=== PATIENT | male | born 1965 | race Caucasian/White ===

== ENCOUNTER 2019-10-26 07:06 | Emergency (ER) | payer MEDICAID, OTHER ==
[~2019-10-26] VITALS: Ht 188 cm; Wt 81.6 kg
--- NOTE | 2019-10-26 07:21 | NUR ---
PT BIB SELF C/O L PINKY FINGER SWELLING AND PAIN, PT IS AAOX4, NOT IN RESPIRATORY DISTRESS, HOOKED TO MONITOR, KEPT RESTED AND COMFORTABLE, WILL CONTINUE TO MONITOR.
--- NOTE | 2019-10-26 07:33 | NUR ---
SEEN AND EXAMINED BY
--- NOTE | 2019-10-26 07:52 | NUR ---
IV LINE ESTABLISHED, BLOOD DRAWN AND SENT TO LAB.
[2019-10-26] MEDS ORDERED: VANCOMYCIN 1 GM in IV D5W 250 ML IV ONE (08:00)
[2019-10-26] MEDS ORDERED: PIPERACILLIN /TAZOBACTAM 3.375 G in IV D5W 50 ML IV ONE (08:00)
[2019-10-26 08:07] LABS: BASOPHILS % (AUTO) 0.5 % (0.0-2.0); EOSINOPHILS % (AUTO) 3.7 % (0.0-6.0); HEMATOCRIT 42 % (39-51); HEMOGLOBIN 14.5 g/dL (13.5-17.5); LYMPHOCYTES # (AUTO) 1.7 /CMM (0.8-4.8); LYMPHOCYTES % (AUTO) 20.6 % (20.0-44.0); MEAN CORPUSCULAR HGB CONC 34 g/dl (31.0-36.0); MEAN CORPUSCULAR VOLUME 92 fL (80-96); MONOCYTES # (AUTO) 0.4 /CMM (0.1-1.30); MONOCYTES % (AUTO) 5.4 % (2.0-12.0); NEUTROPHILS # (AUTO) 5.7 /CMM (1.8-8.9); NEUTROPHILS % (AUTO) 69.8 % (43.0-81.0); PLATELET COUNT (AUTO) 216 /CMM (150-450); RED BLOOD CELL COUNT(AUTO) 4.59 MIL/uL (4.5-6.0); WHITE BLOOD COUNT (AUTO) 8.2 K/uL (4.3-11.0)
[2019-10-26 08:14] LABS: CALCIUM, SERUM 9.6 mg/dL (8.5-10.1); CREATININE 0.9 mg/dL (0.6-1.3)
[2019-10-26 08:15] LABS: POTASSIUM 2.6 mmol/L (3.5-5.1)
[2019-10-26] MEDS ORDERED: HYDROCODONE/APAP 5/325MG 1 EACH TABLET ONE (08:28)
[2019-10-26] MEDS ORDERED: HYDROCODONE/APAP 5/325MG 1 EACH TABLET PO ONE ×2 (09:00)
[2019-10-26] MEDS ORDERED: TDAP [DIPH/PERTUSSIS/TET] 0.5 ML VIAL IM ONE ×2 (10:52→11:00)
[2019-10-26] MEDS ORDERED: MORPHINE SULFATE INJ 4 MG/ML DISP.SYRIN ONE (10:52)
[2019-10-26] MEDS ORDERED: ONDANSETRON HCL/PF 4 MG/2 ML VIAL ONE (10:52)
--- NOTE | 2019-10-26 10:52 | NUR ---
CALL BACK FROM JAYME WALKER TO DR SORENSON
[2019-10-26] MEDS ORDERED: ONDANSETRON HCL/PF 4 MG/2 ML VIAL IVP ONE (11:00)
[2019-10-26] MEDS ORDERED: MORPHINE SULFATE INJ 2 MG/ML DISP.SYRIN IV ONE (11:00)
--- NOTE | 2019-10-26 11:18 | NUR ---
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
--- NOTE | 2019-10-26 11:20 | NUR ---
TRANSFER INFO [facility] ROOM: [id number] # FOR REPORT: [phone]
--- NOTE | 2019-10-26 11:30 | NUR ---
REPORT GIVEN TO AZUCENA ELLIS OF [facility] FOR [facility].
[2019-10-26] MEDS ORDERED: POTASSIUM CHLORIDE 20 MEQ TAB.PRT.SR PO ONE ×2 (11:32→12:00)
--- NOTE | 2019-10-26 11:32 | NUR ---
andrew called from [facility]: apa will pick up attendant eta 60 mins by [facility] [address]
--- NOTE | 2019-10-26 12:44 | NUR ---
REPORT GIVEN TO EMT FOR PT TRANSFER TO [facility]
[2019-10-26 12:48] VITALS: BP 156/92
== END 2019-10-26 12:50 | disposition short-term general hospital (02) ==
LOC: ER 07:09
DX: S63.697A Other sprain of left little finger, initial encounter (principal); I10 Essential (primary) hypertension; X58.XXXA Exposure to other specified factors, initial encounter; Y93.89 Activity, other specified; Y92.89 Other specified places as the place of occurrence of the external cause; Y99.8 Other external cause status
CPT/HCPCS: 36415; 71045; 80048; 83605; 84145; 85025; 85730; 87040 ×2; 90471; 90715; 93005; 96365; 96367; 96375; 99285; J2270; J2405; J2543; J3370; J7060 ×2